=== PATIENT | female | born 1940 | race Caucasian/White ===

== ENCOUNTER → 2021-01-31 | Outpatient (CLI) | payer MEDICARE, OTHER ==
--- NOTE | 2021-01-31 12:43 | Diagnostic Imaging Report ---
INDICATION: Chronic cough COMPARISON: None. FINDINGS: Frontal and lateral views of the views chest demonstrate slight cardiac enlargement. Lungs are otherwise clear. There is no pneumothorax. Osseous structures are age-appropriate. IMPRESSION: No acute cardiopulmonary findings. Dictated by: Dictated on workstation # [id number]
== END ==
LOC: RAD FS 11:24
PROVIDERS: ATTEND Family Medicine
DX: R05.3 Chronic cough (principal)
CPT/HCPCS: 71046